=== PATIENT | male | born 1930 | race Caucasian/White ===

== ENCOUNTER 2017-09-26 16:56 | Inpatient (IN) | payer MEDICARE, OTHER ==
[2017-09-26] MEDS ORDERED: Lidocaine 2% Jelly 5 ML TUBE ONE ×2 (17:10→18:24)
[2017-09-26] MEDS ORDERED: D5 1/2 NS w/10 mEq KCl 1,000 ML/1,000 ML BAG IV SCH (17:30)
[2017-09-26 18:29] LABS: #Eosinphils 0.1 thou/uL (0.0-0.7); #Lymphocytes 1.2 thou/uL (1.20-3.40); #Monocytes 0.6 thou/uL (0.11-0.59); #Neutrophils 9.8 thou/uL (1.40-6.50); %Basophils 0.4 % (0.0-1.0); %Eosinophils 0.7 % (0.0-10.0); Hematocrit 29.8 % (42.0-52.0); Mean Platelet Volume 7.2 fL (7.4-10.4); Red Blood Cell (RBC) Count 2.63 mill/uL (4.70-6.10); White Blood Cell (WBC) Count 11.7 thou/uL (4.8-10.8)
[2017-09-26 18:40] LABS: PTT 31.5 SEC (22.9-36.1); Prothrombin Time 14.6 SEC (12.0-14.7)
[2017-09-26 18:48] LABS: Anion Gap 11 mmol/L (10-20); BUN (Urea Nitrogen) 21 mg/dL (8.4-25.7); Calc. Creatinine Clearance 0 mL/min (70-130); Calcium 8.9 mg/dL (7.8-10.44); Carbon Dioxide 26 mmol/L (23-31); Chloride 100 mmol/L (98-107); Estimated GFR-MDRD 65
[2017-09-26 19:50] VITALS: BMI 23.8
--- NOTE | 2017-09-26 19:59 | PDOC.PN ---
- Subjective Encounter Start Date: 09/26/17 Encounter Start Time: 19:57 Pt seen for management of medical comorbidities, including hyponatremia. Denies chest pain, shortness of breath, fevers or chills. - Objective MAR Reviewed: Yes Vital Signs & Weight: Vital Signs (12 hours) Temp Pulse Resp BP Pulse Ox 09/26/17 19:22 98.4 F 66 20 126/60 99 Weight Weight 176 lb 3 oz Result Diagrams: 09/26/17 17:59 09/26/17 17:59 Phys Exam - Physical Examination Constitutional: NAD HEENT: moist MMs, sclera anicteric Neck: supple Respiratory: clear to auscultation bilateral Cardiovascular: RRR Gastrointestinal: soft, non-tender, positive bowel sounds red urine in beck Musculoskeletal: pulses present Neurological: moves all 4 limbs Psychiatric: normal affect Skin: no rash Dx/Plan (1) Hyponatremia Code(s): E87.1 - HYPO-OSMOLALITY AND HYPONATREMIA Status: Acute (2) BPH (benign prostatic hyperplasia) Code(s): N40.0 - BENIGN PROSTATIC HYPERPLASIA WITHOUT LOWER URINRY TRACT SYMP Status: Chronic (3) Gout Code(s): M10.9 - GOUT, UNSPECIFIED Status: Chronic (4) DJD (degenerative joint disease) Code(s): M19.90 - UNSPECIFIED OSTEOARTHRITIS, UNSPECIFIED SITE Status: Chronic - Plan DVT proph w/SCDs * . Hyponatremia mild, likely asymptomatic. Provide IV NS, recheck sodium level. Continue Flomax, Avodart. Continue allopurinol once dose clarified. Pt is NPO after midnight. Review of Systems - Review of Systems Cardiovascular: negative: Chest Pain, Palpitations, Orthopnea, Paroxysmal Noc. Dyspnea, Edema, Light Headedness Gastrointestinal: negative: Nausea, Vomiting, Abdominal Pain, Diarrhea, Constipation, Melena, Hematochezia Genitourinary: Hematuria - Medications/Allergies Allergies/Adverse Reactions: Allergies Allergy/AdvReac Type Severity Reaction Status Date / Time adhesive Allergy BLISTERS Verified 09/26/17 19:55 Medications: Current Medications Dutasteride (Avodart) 0.5 mg PO HS KENNY Potassium Chloride/Dextrose/Sod Cl (D5 1/2 Ns W/10 Meq Kcl) 1,000 ml in 1,000 mls @ 125 mls/hr IV .Q8H KENNY Last Admin: 09/26/17 19:33 Dose: 1,000 mls Tamsulosin HCl (Flomax) 0.4 mg PO HS KENNY
[2017-09-26] MEDS: Tamsulosin HCl 0.4 MG CAP PO SCH (20:38)
[2017-09-26] MEDS: Dutasteride 0.5 MG CAP PO SCH (20:38)
[2017-09-26] MEDS: Potassium Chloride 10 MEQ in Dextrose 5 % And 0.9 % NaCl 1,000 ML IV SCH (22:14)
[2017-09-27 05:18] LABS: #Eosinphils 0.1 thou/uL (0.0-0.7); #Lymphocytes 0.9 thou/uL (1.20-3.40); #Monocytes 0.4 thou/uL (0.11-0.59); #Neutrophils 4.3 thou/uL (1.40-6.50); %Basophils 0.5 % (0.0-1.0); %Eosinophils 1.8 % (0.0-10.0); %Lymphocytes 15.7 % (21.0-51.0); %Monocytes 7.5 % (0.0-10.0); Hematocrit 29.4 % (42.0-52.0); Mean Platelet Volume 7.4 fL (7.4-10.4); White Blood Cell (WBC) Count 5.8 thou/uL (4.8-10.8)
[2017-09-27 05:37] LABS: Anion Gap 7 mmol/L (10-20); BUN (Urea Nitrogen) 17 mg/dL (8.4-25.7); Calc. Creatinine Clearance 67 mL/min (70-130); Calcium 8.4 mg/dL (7.8-10.44); Carbon Dioxide 26 mmol/L (23-31); Chloride 107 mmol/L (98-107); Estimated GFR-MDRD 86
--- NOTE | 2017-09-27 05:57 | CON ---
DATE OF CONSULTATION: 09/26/2017 HISTORY OF PRESENT ILLNESS: This is an 87-year-old white male who I saw in my office today for the l ast one of his maintenance treatments with half strength BCG and full strength alpha interferon for i ntravesical chemotherapy for recurrent bladder cancer. He had been treated for years for this mainte nance therapy and is kept him from cystectomy or radiation. Because of his age, we cannot pursue the se two options and he has had numerous bladder tumor resections and biopsies. His last cystoscopy in the office did not show anything suspicious. He got through the first two of these three maintenanc e doses without much trouble and hematuria. One of them today developed gross hematuria when he got home and was unable to urinate, came into the office. I placed a 22 Swedish Patrick catheter and irriga phoebe. No clots and could not get him clear. We watched him for about 45 minutes to an hour in the of fice and he did not clear. At that point, it was felt he needed to be admitted and started on bladde r irrigation and get some blood work checked. He has been admitted now to the hospital. Since he garcia d been to the hospital, we removed the Patrick catheter, placed a 22-Swedish three-way with hand irrigat ed. Actually, fair amount of clots here and we hooked him up to continuous irrigation. His urine is now light pink. It appears that his hemoglobin is 10.1, white count is 11.7, platelet count is 273. Coags are not yet back, nor his chemical survey. PAST MEDICAL HISTORY: Apart from the bladder cancer, he has had longstanding lower urinary tract sym ptoms and BPH, for which he takes Flomax and Avodart. He has a history of gout and he takes allopuri nol. PAST SURGICAL HISTORY: He has had a history of colectomy, left knee surgery. ALLERGIES: He has no known drug allergies. PHYSICAL EXAMINATION: ABDOMEN: He has no flank tenderness. ABDOMEN: Soft and nontender. GENITOURINARY: Bladder is no longer distended. He is not circumcised. There is no phimosis or lesi ons. Testicles descended without mass or tenderness . IMPRESSION: Gross hematuria, which may be related to the BCG therapy or may be prostatic bleeding an d it would be less likely be recurrent bladder cancer. I do not believe he needs a CAT scan done of his upper tracts. We will keep him in the hospital on bladder irrigation because of his age and his medical condition, the fact that his family doctor is out in [place] and does not come to the [facility]. We will consult the hospitalist to see him in regards to his other health issues. We will recheck hemoglobin on tomorrow morning.
[2017-09-27] MEDS: Potassium Chloride 10 MEQ in Dextrose 5 % And 0.9 % NaCl 1,000 ML IV SCH (09:04)
--- NOTE | 2017-09-27 10:18 | PDOC.PN ---
- Subjective Encounter Start Date: 09/27/17 Encounter Start Time: 07:00 Pt seen for followup re: BPH. Denies chest pain, shortness of breath, fevers or chills. No nausea or vomiting. - Objective MAR Reviewed: Yes Vital Signs & Weight: Vital Signs (12 hours) Temp Pulse Resp BP Pulse Ox 09/27/17 08:00 97.6 F 61 20 156/67 H 09/27/17 04:04 97.9 F 63 16 108/61 99 09/26/17 23:57 97.9 F 66 16 114/61 98 Weight Weight 176 lb 3 oz I&O: 09/26/17 09/27/17 09/28/17 06:59 06:59 06:59 Intake Total 1113 Output Total 3775 Balance -2662 Result Diagrams: 09/27/17 04:40 09/27/17 04:40 Phys Exam - Physical Examination Constitutional: NAD HEENT: moist MMs, sclera anicteric Neck: supple Respiratory: clear to auscultation bilateral Cardiovascular: RRR Gastrointestinal: soft, non-tender Neurological: moves all 4 limbs Psychiatric: normal affect Skin: normal turgor Dx/Plan (1) BPH (benign prostatic hyperplasia) Code(s): N40.0 - BENIGN PROSTATIC HYPERPLASIA WITHOUT LOWER URINRY TRACT SYMP Status: Chronic (2) Gout Code(s): M10.9 - GOUT, UNSPECIFIED Status: Chronic (3) DJD (degenerative joint disease) Code(s): M19.90 - UNSPECIFIED OSTEOARTHRITIS, UNSPECIFIED SITE Status: Chronic (4) Hyponatremia Code(s): E87.1 - HYPO-OSMOLALITY AND HYPONATREMIA Status: Resolved - Plan plan discussed w/ family, DVT proph w/SCDs * . Urine clearing up. Continue Flomax and Avodart. Hyponatremia resolved. Review of Systems - Review of Systems Constitutional: Other. negative: Fever, Chills, Sweats, Weakness, Malaise Cardiovascular: negative: Chest Pain, Palpitations, Orthopnea, Paroxysmal Noc. Dyspnea, Edema, Light Headedness Genitourinary: Hematuria. negative: Dysuria, Frequency, Incontinence, Retention - Medications/Allergies Allergies/Adverse Reactions: Allergies Allergy/AdvReac Type Severity Reaction Status Date / Time adhesive Allergy BLISTERS Verified 09/26/17 19:55 Medications: Current Medications Dutasteride (Avodart) 0.5 mg PO HS KENNY Last Admin: 09/26/17 20:38 Dose: 0.5 mg Potassium Chloride 10 meq/ (Dextrose/Sodium Chloride) 1,005 mls @ 100 mls/hr IV .Q10H3M KENNY Last Admin: 09/27/17 09:04 Dose: 1,005 mls Tamsulosin HCl (Flomax) 0.4 mg PO HS KENNY Last Admin: 09/26/17 20:38 Dose: 0.4 mg
[2017-09-27] MEDS ORDERED: CYANOCOBALAMIN 2500 MCG PO SCH (10:30)
[2017-09-27] MEDS: Dutasteride 0.5 MG CAP PO SCH (20:36)
[2017-09-27] MEDS: Tamsulosin HCl 0.4 MG CAP PO SCH (20:36)
[2017-09-28 07:18] VITALS: BP 150/70; TEMP 97.8
--- NOTE | 2017-09-28 07:29 | PDOC.PN ---
- Subjective Encounter Start Date: 09/28/17 Encounter Start Time: 07:28 -: old records requested/rev Pt seen and examined, chart reviewe din its entirety. Urology notes in the paper chart have been reviewed. Current plan is to pull catheter today and hoefully discharge. Medically, pt has been stable, no F/c, no N/V/D/cv. CBI stopped last evening, plans to discharge home today after beck removal. Urine intially clear after CBI, slightly pink today 10 point ROS performed and neg for all systems except as above - Objective MAR Reviewed: Yes Vital Signs & Weight: Vital Signs (12 hours) Temp Pulse Resp BP Pulse Ox 09/28/17 07:17 97.8 F 66 17 150/70 H 98 09/27/17 19:52 97.7 F 69 16 09/27/17 19:36 97.7 F 69 16 138/65 97 Weight Weight 176 lb 3 oz I&O: 09/27/17 09/28/17 09/29/17 06:59 06:59 06:59 Intake Total 1113 4140 Output Total 3775 4050 Balance -2662 90 Result Diagrams: 09/27/17 04:40 09/27/17 04:40 Radiology Reviewed by me: Yes EKG Reviewed by me: Yes Phys Exam - Physical Examination Constitutional: NAD HEENT: PERRLA, moist MMs, sclera anicteric, oral pharynx no lesions Neck: no nodes, no JVD, supple, full ROM Respiratory: no wheezing, no rales, no rhonchi, clear to auscultation bilateral Cardiovascular: RRR, no significant murmur, no rub Gastrointestinal: soft, non-tender, no distention, positive bowel sounds Musculoskeletal: pulses present Neurological: non-focal, normal sensation, moves all 4 limbs Lymphatic: no nodes Psychiatric: normal affect, A&O x 3 Skin: no rash, normal turgor, cap refill <2 seconds Dx/Plan (1) Gross hematuria Status: Resolved (2) Bladder cancer Status: Chronic Qualifiers: Bladder location: unspecified site Qualified Code(s): C67.9 - Malignant neoplasm of bladder, unspecified (3) BPH (benign prostatic hyperplasia) Code(s): N40.0 - BENIGN PROSTATIC HYPERPLASIA WITHOUT LOWER URINRY TRACT SYMP Status: Chronic Qualifiers: Lower urinary tract symptom presence: symptoms absent Qualified Code(s): N40.0 - Benign prostatic hyperplasia without lower urinary tract symptoms (4) DJD (degenerative joint disease) Code(s): M19.90 - UNSPECIFIED OSTEOARTHRITIS, UNSPECIFIED SITE Status: Chronic Qualifiers: Osteoarthritis location: unspecified site Osteoarthritis type: primary Qualified Code(s): M19.91 - Primary osteoarthritis, unspecified site (5) Gout Code(s): M10.9 - GOUT, UNSPECIFIED Status: Chronic Qualifiers: Gout site: unspecified site Gout etiology: unspecified cause Chronicity: unspecified Qualified Code(s): M10.9 - Gout, unspecified - Plan cont current plan of care * . Plan is to discharge later today. Will continue to follow in house. medically stable
[2017-09-28] MEDS ORDERED: [UNRECOGNIZED DRUG - OTHER] PO SCH (09:00)
[2017-09-28] MEDS ORDERED: [UNRECOGNIZED DRUG - OTHER] PO SCH (09:00)
[2017-09-28] MEDS ORDERED: Allopurinol 300 MG TAB PO SCH (09:00)
[2017-09-28] MEDS ORDERED: Ciprofloxacin 500 MG TAB PO SCH (09:45)
[2017-09-29] MEDS ORDERED: Cyanocobalamin (Vitamin B-12) 1,000 MCG TAB PO SCH (09:00)
== END 2017-09-28 12:04 | disposition home or self-care (01) | DRG 696 ==
LOC: ONC 16:56
PROVIDERS: ADMIT Urology; ATTEND Urology
DX: R31.0 Gross hematuria (principal); C67.9 Malignant neoplasm of bladder, unspecified; E87.1 Hypo-osmolality and hyponatremia; Z92.21 Personal history of antineoplastic chemotherapy; M10.9 Gout, unspecified; Z90.49 Acquired absence of other specified parts of digestive tract; M19.90 Unspecified osteoarthritis, unspecified site; N40.1 Benign prostatic hyperplasia with lower urinary tract symptoms; R33.8 Other retention of urine
CPT/HCPCS: 36415; 80048; 85025; 85610; 85730; 86850; 86900; 86901; 87086; A4216; J3480; J7042